=== PATIENT | male | born 1995 | race Caucasian/White ===

== ENCOUNTER 2019-03-29 09:52 | Outpatient (CLI) | payer OTHER | END 2019-03-29 09:53 | disposition critical access hospital (66) | LOC: EMS 09:52 | PROVIDERS: ATTEND Surgery | DX: R51 Headache (principal); R41.0 Disorientation, unspecified; M54.5 Low back pain; V49.9XXA Car occupant (driver) (passenger) injured in unspecified traffic accident, initial encounter; Y92.414 Local residential or business street as the place of occurrence of the external cause | CPT/HCPCS: A0425; A0427 ==

== ENCOUNTER 2019-03-29 10:15 | Emergency (ER) | payer OTHER ==
[2019-03-29] MEDS ORDERED: SODIUM CHLORIDE 0.9% 1,000 ML IV ONE (10:22)
[2019-03-29] MEDS ORDERED: ACETAMINOPHEN 1,000 MG/100 ML 100 ML IV STA (10:24)
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
[2019-03-29] MEDS ORDERED: IOVERSOL 320 100 ML VIAL IVP ONE ×2 (10:49→16:13)
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
[2019-03-29 11:05] LABS: BASOPHILS % (AUTO) 0.3 %; EOSINOPHILS % (AUTO) 0.4 %; HGB - HEMOGLOBIN 14.3 g/dL (14.0-18.0); LYMPHOCYTES # (AUTO) 1.6 10^3/uL (1.5-3.5); LYMPHOCYTES % (AUTO) 22.7 %; MEAN CORPUSCULAR HEMOGLOBIN 30.2 pg (27.0-31.0); MEAN CORPUSCULAR HGB CONC 34.3 g/dL (32.0-36.0); MEAN CORPUSCULAR VOLUME 88.2 fL (80.0-94.0); MONOCYTES # (AUTO) 0.6 10^3/uL (0.0-1.0); MONOCYTES % (AUTO) 8.4 %; NEUTROPHILS # (AUTO) 4.7 10^3/uL (1.5-6.6); NEUTROPHILS % (AUTO) 67.8 %; PLT - PLATELET COUNT 196 10^3/uL (130-450); RED BLOOD COUNT 4.73 10^6/uL (4.70-6.10); RED CELL DISTRIBUTION WIDTH 12.8 % (12.0-15.0); WHITE BLOOD COUNT 6.9 x10^3/uL (4.8-10.8)
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
[2019-03-29 11:18] LABS: ALBUMIN/GLOBULIN RATIO 1.5 (1.0-2.2); ALKALINE PHOSPHATASE 56 IU/L (42-121); ALT ALANINE AMINOTRANSFERASE 36 IU/L (10-60); AST ASPARTATE AMINOTRANSFERASE 49 IU/L (10-42); BILIRUBIN,TOTAL 0.7 mg/dL (0.2-1.0); BUN - BLOOD UREA NITROGEN 23 mg/dL (6-20); CALCIUM 9.1 mg/dL (8.5-10.3); CARBON DIOXIDE - CO2 24 mmol/L (21-32); CHLORIDE 102 mmol/L (101-111); GFR - MDRD 91 (>89); GLUCOSE 95 mg/dL (70-100); LIPASE 31 U/L (22-51); SODIUM 136 mmol/L (135-145); TOTAL PROTEIN 6.7 g/dL (6.7-8.2)
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
[2019-03-29] MEDS ORDERED: LIDOCAINE MPF 1%-EPI 1:200000 30 ML VIAL SUBQ STA (11:44)
[2019-03-29] MEDS ORDERED: KETOROLAC 15 MG/ML VIAL IVP STA (11:44)
[2019-03-29 12:10] VITALS: BP 138/72
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
== END 2019-03-29 13:41 | disposition home or self-care (01) ==
LOC: ED 10:15
DX: S06.0X0A Concussion without loss of consciousness, initial encounter (principal); S60.151A Contusion of right little finger with damage to nail, initial encounter; S16.1XXA Strain of muscle, fascia and tendon at neck level, initial encounter; S29.012A Strain of muscle and tendon of back wall of thorax, initial encounter; S80.812A Abrasion, left lower leg, initial encounter; M54.5 Low back pain; V43.52XA Car driver injured in collision with other type car in traffic accident, initial encounter; W22.11XA Striking against or struck by driver side automobile airbag, initial encounter; Y92.410 Unspecified street and highway as the place of occurrence of the external cause
CPT/HCPCS: 11740; 36415; 70450; 71260; 72125; 73130; 73562; 74177; 80053; 80320; 83690; 85025; 96361; 96365; 96375; 99283; 99284; J0131; Q9967

== ENCOUNTER 2022-11-09 09:37 | Outpatient (CLI) | payer OTHER ==
--- NOTE | 2022-11-09 12:25 | SLEEP CARE CONSULTATION ---
Information from patient questionnaire entered by Monty Oreilly. I have reviewed and concur with the information entered by Monty Oreilly. This document represents the service I personally performed and the decisions made by me, Be Roa MD, [facility]. History of Present Illness Service Date and Time: 11/09/2022 0937 Reason for Visit: New patient Chief Complaint: reports: Insomnia, Unrefreshed sleep, Snoring, Excessive daytime sleepiness, Observed pauses in breathing, Fatigue, Frequent awakenings at night Date of Onset: 9YRS Usual bedtime: 10PM Time it takes to fall asleep: 1.5HRS Snores at night: Yes Observed to quit breathing while asleep: Yes Sleeps alone due to snoring: No Number of times waking at night: 5-6 Reasons for waking at night: reports: Choking, Snoring, Gasping for air, Bathroom, Other (UNKNOWN, NOISE) Toss, Turn, or Twitch while sleeping: Yes Recalls having dreams: Yes Usually gets out of bed at: 640AM Feels refreshed in the morning: No Morning headache: Yes (2PM) Sleepy or fatigued during the day: Yes Ever fallen asleep while driving: No Takes day naps: Yes Dreams during day naps: Yes Prior sleep studies: No Additional HPI information: I had the pleasure of seeing Mr. Cintron today regarding the possibility of him having a sleep disorder. As you know, he is a 27-year-old gentleman who complains of loud snore and his has seen him quit breathing while asleep. The patient tells me that he normally goes to bed around 10 pm, and it takes him approximately 1.5 hours to fall asleep. His can still sleep in the same bed. He can recall waking up on the average of 5 - 6 times during the night. Most of the time he wakes up because of having to use the bathroom and unknown reason. He has awakened occasionally because of his own snoring, choking, and having to gasp for air. There is not a lot of tossing and turning in his sleep. No somniloquy (sleep talking) or somnambulism (sleep walking). Generally, he can recall having dreams. In the morning he usually gets up out of the bed around 6:40 a.m. not feeling refreshed nor rested. He usually does have a morning headache that goes away around 2 pm. During the day he complains of feeling sleepy and fatigued. His score on [place] Sleepiness Scale is 12 out of 24. He has never fallen asleep while driving nor has had any accident due to sleepiness. He usually takes naps during the day. Upon falling asleep during the day he reports having dreams. He has never had sleep paralysis, experienced cataplexy or symptoms of restless leg syndrome. He reports having impaired concentration during the day. 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 Patient is and lives in . Have you smoked in the past 12 months: No Alcohol use: Yes Alcohol amount and frequency: 1-2 DRINKS 1 TIME A MONTH Caffeine use: Yes Caffeine amount and frequency: 1/2 CUP AILY Family History Family history of sleep disordered breathing: Yes Family Hx Sleep Apnea: Mother: Sleep apnea - Untreated, Father: Sleep apnea - Untreated Allergies and Home Medications Known drug allergies: No Drug allergies reviewed: Yes Home medication list reviewed: Yes Allergy and home medication list: Allergies No Known Drug Allergies Allergy (Verified 11/06/22 09:14) Review of Systems Cardiovascular: reports: high blood pressure, irregular heart rate or pulse Respiratory: denies: shortness of breath, wheeze, sputum production, chronic cough, other Gastrointestinal: denies: heartburn, difficulty swallowing, nausea, vomitting, diarrhea, abdominal pain, other Urinary: denies: incontinence, frequency, urgency, impotence, other Neurological: denies: headaches, seizure, head trauma, disorientation, speech dysfunction, gait or balance problems, fainting or unconsciousness, other Psychiatric: reports: anxiety, depression Ear/Nose/Throat: reports: nasal congestion, sinus problems Endocrine: denies: thyroid disease, history of goiter, sluggishness, too hot or cold, excessive thirst, increased appetite, increased urination, unexplained weakness, other Musculoskeletal: denies: joint pain, neck pain, back pain, joint swelling, muscle pain or cramping, mobility problems, other Immunologic: denies: sneezing, rash, itching, allergies to food or environment, other Physical Exam Vital signs obtained and entered by: MONTY Regalado MA Blood Pressure: 128/76 (LEFT ARM) Cuff size: regular Heart Rate: 78 O2 Saturation: 97 Height: 6 ft 1.5 in Weight: 204 lb 6.4 oz Body Mass Index: 26.6 BMI Classification: Overweight Neck circumference: 15.5 Mood/affect: Normal HEENT: No craniofacial malformation Nostrils: partially obstructed (right) Turbinates: normal Septum: midline Mouth and throat: narrow oropharynx Soft palate: long Hard palate: normal Uvula: normal Uvula visualization: 50% Mallampati Class II Tongue: normal in size Tonsils: small Chin and jaw: normal size and position Neck: normal w/o lymphadenopathy or thyromegaly Heart: regular rate and rhythm Lungs: clear bilaterally Extremities: no edema or clubbing Neurologic: intact Impression and Plan IMPRESSION: 1. Obstructive Sleep Apnea-Hypopnea Syndrome, as suggested by history of loud and irregular snoring, observed cessation of breath while asleep, frequent awakenings during the night, unrefreshed sleep, cognitive impairment, and daytime hypersomnolence. Narrow oropharynx is a common predisposing factor for obstructive sleep apnea-hypopnea syndrome. I recommend proceeding to polysomnography to confirm the diagnosis and to assess severity. I informed the patient of what the sleep studies involve and after some discussion, he agreed to proceed. Plan: 1. Schedule polysomnography and return in 1 to 2 weeks after the study to discuss the result and initiate therapy. 2. Avoid long-distance driving or when feeling sleepy. 3. Avoid alcohol, sedatives, and muscle relaxants around bedtime. Follow up with Sleep Care in: 1-2 months Plan: in-lab PSG Visit Type: In Office Time Spent with Patient (minutes): 15 Provider Statement: I spent 100% of the Face to Face Visit with the patient with greater than 50% spent counseling the patient and coordination of care.
[2022-11-09 12:26] VITALS: BP 128/76
== END 2022-11-09 09:38 | disposition home or self-care (01) ==
LOC: SC 09:37
PROVIDERS: ATTEND Internal Medicine Pulmonary Disease
DX: R06.83 Snoring (principal); G47.8 Other sleep disorders; R06.81 Apnea, not elsewhere classified; G47.10 Hypersomnia, unspecified; I49.9 Cardiac arrhythmia, unspecified; E66.3 Overweight; Z68.26 Body mass index [BMI] 26.0-26.9, adult
CPT/HCPCS: 99202; 99212

== ENCOUNTER 2023-02-08 12:48 | Outpatient (CLI) | payer OTHER ==
--- NOTE | 2023-02-08 10:57 | SLEEP CARE CONSULTATION ---
Information from patient questionnaire entered by Monty Oreilly. I have reviewed and concur with the information entered by Monty Oreilly. This document represents the service I personally performed and the decisions made by me, Be Roa MD, [facility]. History of Present Illness Service Date and Time: 02/08/2023 1040 Initial Kinsman Sleepiness Scale score: 10 (11/09/22) Current Kinsman Sleepiness Scale score: 12 (02/08/23) Additional HPI information: Mr. Cintron returned for follow up of the sleep study he had on . The polysomnography showed that the patient had reduced sleep efficiency due to prolonged awakening in the middle of the night. The sleep architecture was relatively normal considering the first-night effect. Respiratory monitoring showed no significant sleep disordered breathing (AHI = 0.0) or hypoxia (gema oxygen saturation of 91%). The patient slept adequately in supine position (supine AHI = 0.0; non-supine = 0.00). Snore was infrequent and light in intensity. There was mild periodic leg movement of sleep not associated with sleep fragmentation. Cardiac rhythm was normal sinus rhythm without significant arrhythmia. No abnormal behavior (parasomnia) observed during the night. The patient was informed of these findings. I explained to him that he had mild periodic leg movement of sleep. The patient reports restless leg symptoms about every other day and more frequently in the evening. He is not taking any medications. Sleep Study - Results Type of Sleep Study: Polysomnography (COMPLETED 01/03/23) Prior sleep studies: No Allergies and Home Medications Drug allergies reviewed: Yes Home medication list reviewed: Yes Allergy and home medication list: Allergies No Known Drug Allergies Allergy (Verified 02/05/23 14:51) Review of Systems Review of systems same as previous: Yes Physical Exam Vital signs obtained and entered by: MONTY Regalado MA Height: 6 ft 2 in (PER PT) Weight: 210 lb (PER PT) Body Mass Index: 26.9 BMI Classification: Overweight Impression and Plan IMPRESSION: 1. Periodic leg movement of sleep, mild, not disrupting sleep but he complains of restless leg syndrome. The cause of periodic leg movement of sleep is typically unknown. A few known causes are iron deficiency, renal failure, and selective serotonin reuptake inhibitors. Iron and ferritin levels are recommended in addition to the routine blood work. Treatment can start with gabapentin or dopamine agonists such as pramipexole. PLAN: 1. He will follow up with his primary care provider regarding the restless leg syndrome. 2. Return for a follow up on as needed basis. Counseling Topics: Weight control Follow up with Sleep Care in: as needed Follow up with: PCP Visit Type: Telehealth Phone Patient agrees and consents to this telehealth visit type: Yes Patient agrees to have their insurance billed: Yes Time Spent with Patient (minutes): 15 Provider Statement: I spent 100% of the Telehealth Phone Call with the patient with greater than 50% spent counseling the patient and coordination of care.
== END 2023-02-08 12:49 | disposition home or self-care (01) ==
LOC: SC 12:48
PROVIDERS: ATTEND Internal Medicine Pulmonary Disease
DX: G47.61 Periodic limb movement disorder (principal); E66.3 Overweight; Z68.26 Body mass index [BMI] 26.0-26.9, adult